=== PATIENT | male | born 2000 | race Hispanic/Latino ===

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

== ENCOUNTER 2021-01-18 22:15 | Emergency (ER) | payer OTHER, MEDICAID, SELFPAY ==
[2021-01-18 22:19] VITALS: BP 135/80; PULSE 76; RESP 16; TEMP 36.4; O2SAT 97
[2021-01-18 22:49] LABS: COVID19 -Nasal RAPID Negative (Negative)
--- NOTE | 2021-01-19 06:51 | ED.RECABL ---
HPI - Recheck/Abnormal Lab/Rx General Chief Complaint: Recheck/Abnormal Lab/Rx Stated Complaint: states needs covid test for flight Time Seen by Provider: 01/18/21 22:15 Source: patient Mode of arrival: Ambulatory Limitations: no limitations History of Present Illness HPI narrative: 20-year-old male nonsmoker with no medical history presents with request to obtain a COVID test that is required prior to the flight he has in the next few days. He denies any symptoms whatsoever such as runny nose, sore throat or cough. He denies any change in his ability to taste or smell. He has no fever or chills. He denies chest pain, shortness of breath or cough. He has had no nausea, vomiting or diarrhea Related Data Home Medications Medication Instructions Recorded Confirmed No Known Home Medications 12/18/20 12/18/20 Allergies Allergy/AdvReac Type Severity Reaction Status Date / Time No Known Drug Allergies Allergy Verified 12/18/20 20:29 Review of Systems Constitutional Constitutional: Denies chills, Denies fatigue, Denies fever(s), Denies frequent falls, Denies lethargy and Denies weakness Eyes Eyes: Denies change in vision, Denies eye discharge, Denies irritation and Denies loss of vision ENT Ears, Nose, Mouth, and Throat: Denies change in voice, Denies dizziness, Denies neck pain, Denies sore throat and Denies throat swelling Cardiovascular Cardiovascular: Denies chest pain, Denies irregular heart rhythm, Denies lightheadedness, Denies palpitations, Denies dyspnea, Denies dyspnea on exertion and Denies orthopnea Respiratory Respiratory: Denies cough, Denies dyspnea, Denies dyspnea on exertion and Denies wheezing Gastrointestinal Gastrointestinal: Denies abdominal pain, Denies change in bowel habits, Denies diarrhea, Denies nausea and Denies vomiting Musculoskeletal Musculoskeletal: Denies neck pain and Denies numbness Integumentary/Breasts Skin/Breast: Denies pruritus, Denies erythema, Denies rash and Denies wounds Neurologic Neurologic: Denies behavioral changes, Denies confusion, Denies dizziness, Denies frequent falls, Denies loss of vision, Denies numbness and Denies weakness Psychiatric Psychiatric: Denies anxiety, Denies behavioral changes, Denies confusion, Denies depression, Denies homicidal ideation and Denies suicidal ideation Endocrine Endocrine: Denies fatigue, Denies flushing and Denies palpitations Hematologic/Lymphatic Hematologic/Lymphatic: Denies easy bruising Allergic/Immunologic Allergic/Immunologic: Denies urticaria, Denies throat swelling and Denies wheezing Patient History Medical History Healthy adult Social History Smoking Status: Never smoker Smoking Status: Never smoker alcohol intake frequency: 0-2 drinks per day Substance Use Type: does not use Exam Narrative Exam Narrative: GEN: AOx3 and in mild distress EYES: Pupils are equal, round, and reactive to light and accommodation. Extraoccular muscles are intact bilaterally. There is no subconjunctival hemorrhage or exudate. CHEST: Lungs are clear to auscultation bilaterally and free of wheezes, rales, or rhonchi. Heart rate is regular rhythm, there are no murmurs, clicks, rubs, or gallops. There is no chest wall tenderness. ABD: Abdomen is soft and nontender. There is no guarding or rebound. Bowel sounds are normal in all 4 quadrants. There is no mass or organomegaly. EXT: Full painless ROM of all extremities with no loss of sensation or strength. SKIN: Warm, pink, and dry. No erythema or rash Initial Vital Signs Initial Vital Signs: Vital Signs Temperature 97.5 F L 01/18/21 22:19 Pulse Rate 76 01/18/21 22:19 Respiratory Rate 16 01/18/21 22:19 Blood Pressure 135/80 01/18/21 22:19 Pulse Oximetry 97 01/18/21 22:19 Course Orders Ordered: ED Orders 01/18/21 22:25 COVID19 -Nasal swab/Pre-Proc Stat MDM - Recheck/Abnormal Lab/Rx Lab Data Labs: Lab Results 01/18/21 Range/Units 22:25 SARS-CoV-2 (PCR) Negative (Negative) Discharge Plan Departure Patient Disposition: Home Clinical Impression: Feared complaint without diagnosis Instructions: COVID-19 Viral Test Activity Restrictions/Additional Instructions: *You have been diagnosed with [ encounter for COVID test ] *What to do: *Follow up with your primary care provider in 2-3 days, call for an appointment. Let them know you were seen in the Emergency Department and that we ask that you be seen in follow up *Return to ER if you should have any new, worsening or concerning symptoms Prescriptions: No Action No Known Home Medications RF: 0
== END 2021-01-18 22:26 | disposition home or self-care (01) ==
PROVIDERS: Emergency Provider Emergency Medicine
DX: Z00.00 Encounter for general adult medical examination without abnormal findings (principal); Z20.822 Contact with and (suspected) exposure to COVID-19
CPT/HCPCS: 87635; 99281; C9803

== ENCOUNTER 2021-04-26 22:42 | Emergency (ER) | payer OTHER, MEDICAID, SELFPAY ==
[2021-04-26 22:45] VITALS: BP 164/108; PULSE 93; RESP 24; TEMP 36.6; O2SAT 97
--- NOTE | 2021-04-26 22:55 | DI.CT.S_ITS ---
PROCEDURE: CT ABDOMEN PELVIS W CON INDICATIONS: Right lower quadrant abdominal pain TECHNIQUE: After the administration of oral and intravenous contrast, axial sections were acquired from the lung bases to the pubic symphysis. Coronal and sagittal reformats were performed. For radiation dose reduction, the following was used: automated exposure control, adjustment of mA and/or kV according to patient size. COMPARISON:[facility], CT, CT ABDOMEN PELVIS W CON, 09/30/2019, 3:28. FINDINGS: ABDOMEN: Lung bases: Normal. Heart: No significant findings. Liver: Normal. Gallbladder: Normal. Bile ducts: Normal. Pancreas: Normal. Spleen: Normal. Adrenals: Normal. Kidneys and Ureters: Normal. Stomach and duodenum: Normal. Bowel: Fluid-filled small bowel loops present in the left upper quadrant. There is borderline dilatation. Long segment wall thickening involving the transverse and right colon with mild adjacent inflammatory fat stranding. The appendix appears normal. Other: No free fluid or air. Abdominal nodes: Subcentimeter shotty scattered mesenteric lymph nodes without pathologic enlargement by size criteria. Aorta and IVC: Normal in size. Ventral wall: Normal. PELVIS: Bladder: Normal. Inguinal region: No hernia. Pelvic nodes: No Bones: No suspicious bony lesions. No vertebral body compression fractures. IMPRESSION: Right and transverse nonspecific colitis, statistically infectious or inflammatory in etiology. Please correlate clinically and with laboratory data. Borderline dilatation of small bowel loops in the left upper quadrant raising the possibility of reactive ileus. Normal appendix. Findings concordant with preliminary study interpretation. Dictated by: Tanvir Pollard M.D. on 04/27/2021 at 8:17 Approved by: Tanvir Pollard M.D. on 04/27/2021 at 8:23
[2021-04-26 23:03] LABS: Add Manual Diff / Slide Review NO; Basophils Absolute Auto 0 /uL (0-100); Basophils Percent Auto 0.2 % (0-2); Eosinophils Absolute Auto 200 /uL (0-450); Eosinophils Percent Auto 1.4 % (2-4); Hematocrit 48.5 % (41-53); Hemoglobin 16.3 g/dL (13.5-17.5); Lymphocytes Absolute Auto 1600 /uL (1100-4500); Mean Corpuscular HGB Conc 33.7 % (30-36); Mean Corpuscular Hemoglobin 28.4 PG (26-34); Mean Corpuscular Volume 84.3 fL (80-100); Monocytes Absolute Auto 700 /uL (0-900); Monocytes Percent Auto 4.5 % (3-14); Neutrophils Absolute Auto 12300 /uL (1500-7000); Neutrophils Percent Auto 82.9 % (50-75); Platelet Count 246 X10^3/uL (150-400); Red Blood Cell Count 5.75 X10^6/uL (4.5-5.9); White Blood Cell Count 14.9 X10^3/uL (4.5-11.0)
--- NOTE | 2021-04-26 23:07 | ED_ITS ---
HPI - General Adult General Chief complaint: Abdominal Pain Stated complaint: severe abdominal pain Time Seen by Provider: 04/26/21 22:54 Source: patient Mode of arrival: Ambulatory History of Present Illness HPI narrative: Patient is an otherwise healthy 21-year-old male here for evaluation of right-sided abdominal discomfort. He states he has had discomfort for the past couple days and has been worsening. He also has had diarrhea. S ome nausea but no vomiting. No fevers. He has had his gallbladder removed. No recent travel. No recent camping. No blood in his stool. Related Data Home Medications Medication Instructions Recorded Confirmed No Known Home Medications 12/18/20 12/18/20 Allergies Allergy/AdvReac Type Severity Reaction Status Date / Time No Known Drug Allergies Allergy Verified 12/18/20 20:29 Review of Systems Constitutional Constitutional: Denies fever(s) ENT Ears, Nose, Mouth, and Throat: Reports system reviewed and no additional complaints, except as documented Cardiovascular Cardiovascular: Reports system reviewed and no additional complaints, except as documented Respiratory Respiratory: Reports system reviewed and no additional complaints, except as documented Gastrointestinal Gastrointestinal: Reports abdominal pain, Denies melena, Denies hematochezia, Reports diarrhea and Reports nausea Genitourinary Genitourinary: Denies dysuria and Denies testicular pain Musculoskeletal Musculoskeletal: Denies back pain Integumentary/Breasts Skin/Breast: Reports system reviewed and no additional complaints, except as documented Neurologic Neurologic: Reports system reviewed and no additional complaints, except as documented Psychiatric Psychiatric: Reports system reviewed and no additional complaints, except as documented Endocrine Endocrine: Reports system reviewed and no additional complaints, except as documented Hematologic/Lymphatic On Anticoagulants: No Allergic/Immunologic Allergic/Immunologic: Reports system reviewed and no additional complaints, except as documented Patient History Medical History Healthy adult Social History Smoking Status: Never smoker Smoking Status: Never smoker alcohol intake frequency: 0-2 drinks per day Substance Use Type: does not use Exam Initial Vital Signs Initial Vital Signs: Vital Signs Temperature 97.9 F 04/26/21 22:45 Pulse Rate 93 H 04/26/21 22:45 Respiratory Rate 24 04/26/21 22:45 Blood Pressure 164/108 H 04/26/21 22:45 Pulse Oximetry 97 04/26/21 22:45 Const General: cooperative and healthy appearing [facility] Head: normal to inspection and normocephalic Resp Effort & Inspection: normal respiratory effort Cardio Rate: regular rate GI Palpation: soft and tender (Right lower quadrant) Back/Spine/Pelvis Back: No CVA tenderness Skin General: no rashes or lesions noted Neuro General: patient alert, patient awake and patient oriented x3 Extrem General: normal to inspection and capillary refill normal Psych Appearance: grossly normal and well kempt Course Orders Ordered: ED Orders 04/26/21 22:55 CT abdomen pelvis w con Stat Complete Blood Count AUTO DIFF Stat Comprehensive Metabolic Panel Stat Lactate (Lactic Acid) Stat Lipase Stat Discontinued Medications Sodium Chloride (Normal Saline 0.9%) 1,000 mls @ 1,000 mls/hr IV BOLUS ONE Stop: 04/26/21 23:53 Last Admin: 04/26/21 23:20 Dose: 1,000 mls/hr Documented by: ADRIANA Morphine Sulfate (Morphine 4 Mg/Ml Inj) 4 mg IV NOW ONE Stop: 04/26/21 23:08 Last Admin: 04/26/21 23:18 Dose: 4 mg Documented by: ADRIANA Ondansetron HCl (Ondansetron 4 Mg Odt Prepack) 1 bottle MISC SEEINSTR ONE Stop: 04/27/21 00:46 Vital Signs Vital signs: Vital Signs - 8 hr 04/26/21 22:45 Temperature 97.9 F Pulse Rate 93 H Respiratory Rate 24 Blood Pressure 164/108 H Pulse Oximetry 97 Medical Decision Making Lab Data Lab results reviewed: Yes I reviewed the patient's lab results. Result diagrams: 04/26/21 22:55 04/26/21 22:55 Labs: Lab Results 04/26/21 04/26/21 04/26/21 Range/Units 22:55 22:55 22:55 WBC 14.9 H (4.5-11.0) X10^3/uL RBC 5.75 (4.5-5.9) X10^6/uL Hgb 16.3 (13.5-17.5) g/dL Hct 48.5 (41-53) % MCV 84.3 (80-100) fL MCH 28.4 (26-34) PG MCHC 33.7 (30-36) % RDW 13.0 (11.6-14.8) % Plt Count 246 (150-400) X10^3/uL Neut % (Auto) 82.9 H (50-75) % Lymph % (Auto) 11.0 L (25-40) % Murray % (Auto) 4.5 (3-14) % Eos % (Auto) 1.4 L (2-4) % Baso % (Auto) 0.2 (0-2) % Neut # (Auto) 70939 H (5226-7969) /uL Lymph # (Auto) 1600 (1054-2154) /uL Murray # (Auto) 700 (0-900) /uL Eos # (Auto) 200 (0-450) /uL Baso # (Auto) 0 (0-100) /uL Sodium 141 (137-145) mmol/L Potassium 4.1 (3.4-5.1) mmol/L Chloride 106 (98-107) mmol/L Carbon Dioxide 25 (22-32) mmol/L BUN 19 (9-20) mg/dL Creatinine 0.67 (0.66-1.25) mg/dL Estimated GFR > 60.0 (>60) mL/min BUN/Creatinine Ratio 28.4 H (6-22) Glucose 112 H (70-100) mg/dL Lactate 1.0 (0.7-2.1) mmol/L Calcium 8.9 (8.4-10.2) mg/dL Total Bilirubin 0.4 (0.2-1.3) mg/dL AST 29 (17-59) IU/L ALT 21 (<50) IU/L Alkaline Phosphatase 144 H (38-126) U/L Total Protein 7.7 (6.3-8.2) g/dL Albumin 4.7 (3.5-5.0) g/dL Globulin 3.0 (1.7-4.1) g/dL Albumin/Globulin Ratio 1.6 (1.0-2.8) Lipase 56 (23-300) U/L Imaging Data CT scan - abdomen/pelvis: Radiologist's Impression: Nonspecific acute right and transverse colitis. Borderline dilated left upper quadrant small bowel possible ileus MDM Narrative Medical decision making narrative: Patient does have right lower quadrant abdominal discomfort and also leukocytosis however his CT scan shows a normal appendix. Does have a nonspecific transverse and ascending colitis which very well could explain his symptoms. He has had some diarrhea but no blood. No fevers. No recent travel. I feel given his presentation that we should treat him supportively with anti nausea medication. We did discuss avoiding the use of anti diarrheal medicines and increases fluid intake. We will hold on any antibiotics for now given his presentation and his history. He was given strict return precautions. He expressed understanding and agreement. Discharge Plan Departure Patient Disposition: Home Clinical Impression: Colitis, Abdominal pain Instructions: DI for Abdominal Pain-Adult, DI for Colitis Activity Restrictions/Additional Instructions: Use the nausea medicine as needed. Be sure to increase your fluid intake. I also recommend that you eat a bland diet until your symptoms have resolved. You can take Tylenol for any discomfort. I would not be surprised if you continue to have diarrhea over the next couple days. If your symptoms worsen or your unable to tolerate any fluids by mouth you do need to return to the emergency department for further evaluation. Prescriptions: No Action No Known Home Medications RF: 0
[2021-04-26 23:13] LABS: Alanine Aminotransferase 21 IU/L (<50); Albumin 4.7 g/dL (3.5-5.0); Albumin Globulin Ratio 1.6 (1.0-2.8); Alkaline Phosphatase 144 U/L (38-126); Aspartate Aminotransferase 29 IU/L (17-59); BUN Creatinine Ratio 28.4 (6-22); Bilirubin Total 0.4 mg/dL (0.2-1.3); Blood Urea Nitrogen 19 mg/dL (9-20); Calcium 8.9 mg/dL (8.4-10.2); Carbon Dioxide 25 mmol/L (22-32); Chloride 106 mmol/L (98-107); Estimated Glomerular Filt Rate > 60.0 mL/min (>60); Glucose 112 mg/dL (70-100); HEMOLYSIS 28 (0-50); Lipase 56 U/L (23-300); Potassium 4.1 mmol/L (3.4-5.1); Sodium 141 mmol/L (137-145); Total Protein 7.7 g/dL (6.3-8.2)
[2021-04-26] MEDS: MORPHINE 4 MG/ML INJ IV (23:18)
[2021-04-26] MEDS: SODIUM CHLORIDE 0.9% 1,000 ML 1000 ML IV (23:20)
[2021-04-27] MEDS: ONDANSETRON 4 MG/2 ML INJ
== END 2021-04-27 05:26 | disposition home or self-care (01) ==
PROVIDERS: Emergency Provider Emergency Medicine
DX: K52.9 Noninfective gastroenteritis and colitis, unspecified (principal); R10.9 Unspecified abdominal pain; R11.2 Nausea with vomiting, unspecified; D72.829 Elevated white blood cell count, unspecified
CPT/HCPCS: 74177; 80053; 83605; 83690; 85025; 96361; 96374; 96375; 99283; 99285; J2270; J2405; Q9967

== ENCOUNTER 2021-05-01 09:23 | Emergency (ER) | payer OTHER, MEDICAID, SELFPAY ==
[2021-05-01] VITALS (7 sets, daily range): BP systolic 115–163; BP diastolic 62–96; PULSE 78–95; RESP 18; TEMP 36.6; O2SAT 97–98; BMI 29.2
--- NOTE | 2021-05-01 09:42 | ED.ABDPAIN ---
HPI - Abdominal Pain General Chief Complaint: Abdominal Pain Stated Complaint: stomach pain Time Seen by Provider: 05/01/21 09:31 Source: patient Mode of arrival: Family Vehicle Limitations: no limitations History of Present Illness HPI narrative: Patient is a 21-year-old male who presents with abdominal pain ongoing for 1.5 week seen and evaluated here 5 days ago had blood work and abdominal CT which showed colitis. He has occasional diarrhea some nausea and increasing abdominal pain. He says it feels better when he holds pressure to his abdomen seems to be periumbilical where he has pain. He denies fever or chills. No dizziness or lightheadedness. Related Data Previous Rx's Medication Instructions Recorded ciprofloxacin HCl 500 mg tablet 500 mg PO BID #14 tab 05/01/21 (Cipro) metronidazole 500 mg tablet 500 mg PO Q8H #21 tab 05/01/21 (Flagyl) Allergies Allergy/AdvReac Type Severity Reaction Status Date / Time No Known Drug Allergies Allergy Verified 05/01/21 09:33 Review of Systems Review of Systems Narrative: GENERAL: Denies chills, fatigue, malaise, fever, sweats, travel HEENT: Denies sinus pain, ear pain, sore throat, difficulty swallowing, neck pain RESPIRATORY: Denies dyspnea, cough, wheezing, hemoptysis, sputum. CARDIOVASCULAR: Denies chest pain, palpitations, orthopnea, edema GASTROINTESTINAL: See HPI : Denies dysuria, frequency, incontinence, hematuria, urinary retention, flank pain. MUSCULOSKELETAL: Denies weakness, joint pain, or bony pain SKIN: No rash, no erythema, no pruritus NEUROLOGIC: Denies weakness, dizziness, headache, numbness, change in speech, confusion PSYCHIATRIC: No concerning psychosocial issues. 12 point review of systems is negative except for those stated above and HPI Patient History Medical History (Updated 05/01/21 @ 10:54 by Liseth Mckeon DO) Healthy adult Social History Smoking Status: Never smoker Smoking Status: Never smoker alcohol intake frequency: 0-2 drinks per day Substance Use Type: does not use Exam Initial Vital Signs Initial Vital Signs: Vital Signs Temperature 97.9 F 05/01/21 09:33 Pulse Rate 90 05/01/21 09:33 Respiratory Rate 18 05/01/21 09:33 Blood Pressure 163/88 H 05/01/21 09:33 Pulse Oximetry 98 05/01/21 09:33 GENERAL: 21-year-old male appears uncomfortable holding abdomen HEENT: Head atraumatic,EOMI, pupils reactive, face symmetric, moist mucous membranes CARDIOVASCULAR: Regular rate and rhythm without murmurs, rubs or gallops. RESPIRATORY: Breath sounds equal bilaterally, no wheezes rales or rhonchi. ABDOMEN: Soft, tender periumbilical region no guarding no rebound EXTREMITIES: Normal range of motion, no clubbing or edema. Neurovascularly intact NEUROLOGICAL: Alert and oriented x4.Normal gait and speech. SKIN: Warm, dry, no laceration, no petechiae, no rashes or lesions. Course Orders Ordered: ED Orders 05/01/21 09:50 Complete Blood Count AUTO DIFF Stat Comprehensive Metabolic Panel Stat Lactate (Lactic Acid) Stat Lipase Stat Procalcitonin Stat 05/01/21 09:54 XR acute abdomen series Stat Discontinued Medications Sodium Chloride (Normal Saline 0.9%) 1,000 mls @ 1,000 mls/hr IV CONT JUHI Last Infusion: 05/01/21 11:18 Dose: 0 mls/hr Documented by: Admin: 05/01/21 10:01 Dose: 1,000 mls/hr Documented by: INES Ketorolac Tromethamine (Ketorolac 30 Mg/Ml Vial) 30 mg IV NOW ONE Stop: 05/01/21 09:44 Last Admin: 05/01/21 10:01 Dose: 30 mg Documented by: INES Ondansetron HCl (Ondansetron 4 Mg/2 Ml Inj) 4 mg IV NOW ONE Stop: 05/01/21 09:44 Last Admin: 05/01/21 10:01 Dose: 4 mg Documented by: INES Vital Signs Vital signs: Vital Signs - 8 hr 05/01/21 11:00 Pulse Rate 78 Blood Pressure 115/71 Pulse Oximetry 98 MDM - Abdominal Pain Lab Data Result diagrams: 05/01/21 09:50 05/01/21 09:50 Labs: Lab Results 05/01/21 05/01/21 05/01/21 Range/Units 09:50 09:50 09:50 WBC 17.0 H (4.5-11.0) X10^3/uL RBC 5.68 (4.5-5.9) X10^6/uL Hgb 16.1 (13.5-17.5) g/dL Hct 47.6 (41-53) % MCV 83.8 (80-100) fL MCH 28.3 (26-34) PG MCHC 33.8 (30-36) % RDW 13.4 (11.6-14.8) % Plt Count 258 (150-400) X10^3/uL Neut % (Auto) 83.6 H (50-75) % Lymph % (Auto) 8.3 L (25-40) % Island % (Auto) 5.5 (3-14) % Eos % (Auto) 1.6 L (2-4) % Baso % (Auto) 1.0 (0-2) % Neut # (Auto) 11778 H (0492-8662) /uL Lymph # (Auto) 1400 (7625-4751) /uL Island # (Auto) 900 (0-900) /uL Eos # (Auto) 300 (0-450) /uL Baso # (Auto) 200 H (0-100) /uL Sodium 138 (137-145) mmol/L Potassium 3.7 (3.4-5.1) mmol/L Chloride 106 (98-107) mmol/L Carbon Dioxide 22 (22-32) mmol/L BUN 11 (9-20) mg/dL Creatinine 0.62 L (0.66-1.25) mg/dL Estimated GFR > 60.0 (>60) mL/min BUN/Creatinine Ratio 17.7 (6-22) Glucose 111 H (70-100) mg/dL Lactate 0.7 (0.7-2.1) mmol/L Calcium 9.1 (8.4-10.2) mg/dL Total Bilirubin 0.4 (0.2-1.3) mg/dL AST 26 (17-59) IU/L ALT 22 (<50) IU/L Alkaline Phosphatase 139 H (38-126) U/L Total Protein 7.6 (6.3-8.2) g/dL Albumin 4.5 (3.5-5.0) g/dL Globulin 3.1 (1.7-4.1) g/dL Albumin/Globulin Ratio 1.5 (1.0-2.8) Lipase 82 (23-300) U/L Procalcitonin (<0.5) ng/mL 05/01/21 Range/Units 09:50 WBC (4.5-11.0) X10^3/uL RBC (4.5-5.9) X10^6/uL Hgb (13.5-17.5) g/dL Hct (41-53) % MCV (80-100) fL MCH (26-34) PG MCHC (30-36) % RDW (11.6-14.8) % Plt Count (150-400) X10^3/uL Neut % (Auto) (50-75) % Lymph % (Auto) (25-40) % Island % (Auto) (3-14) % Eos % (Auto) (2-4) % Baso % (Auto) (0-2) % Neut # (Auto) (6451-0575) /uL Lymph # (Auto) (9098-0562) /uL Island # (Auto) (0-900) /uL Eos # (Auto) (0-450) /uL Baso # (Auto) (0-100) /uL Sodium (137-145) mmol/L Potassium (3.4-5.1) mmol/L Chloride (98-107) mmol/L Carbon Dioxide (22-32) mmol/L BUN (9-20) mg/dL Creatinine (0.66-1.25) mg/dL Estimated GFR (>60) mL/min BUN/Creatinine Ratio (6-22) Glucose (70-100) mg/dL Lactate (0.7-2.1) mmol/L Calcium (8.4-10.2) mg/dL Total Bilirubin (0.2-1.3) mg/dL AST (17-59) IU/L ALT (<50) IU/L Alkaline Phosphatase (38-126) U/L Total Protein (6.3-8.2) g/dL Albumin (3.5-5.0) g/dL Globulin (1.7-4.1) g/dL Albumin/Globulin Ratio (1.0-2.8) Lipase (23-300) U/L Procalcitonin 0.04 (<0.5) ng/mL Point of care testing: Urine Dip Bedside Urine Glucose Negative Bedside Urine Bilirubin - Negative Bedside Urine Ketone - Negative Urine Specific Wise 1.010 Bedside Urine Occult Blood - Negative Bedside Urine pH 6.0 Bedside Urine Protein - Negative Bedside Urine Urobilinogen - Negative Bedside Urine Nitrite - Negative Bedside Urine Leukocytes - Negative Esterase MDM Narrative Medical decision making narrative: Patient is having increasing leukocytosis. X-ray is negative I do not think he needs any repeat CT. Will start him on antibiotics cipro and flagyl. He is tolerating oral fluids. Discharge Plan Departure Patient Disposition: Home Clinical Impression: Colitis Instructions: DI for Colitis Activity Restrictions/Additional Instructions: *You have been diagnosed with colitis *What to do: Infection in your intestine causing inflammation. Recommend clear liquid diet which includes broth, Jell-O, Gatorade, applesauce, for 1-3 days. If you are feeling better may increase diet *Continue to take medications as directed Cipro 500 mg twice a day for 7 days Flagyl 500 mg 3 times a day for 7 days *Follow up with your primary care provider in 2-3 days *Return to ER if you should have increasing pain, vomiting, fever or any new, worsening or concerning symptoms Prescriptions: New ciprofloxacin HCl [Cipro] 500 mg tablet 500 mg PO BID Qty: 14 RF: 0 metronidazole [Flagyl] 500 mg tablet 500 mg PO Q8H Qty: 21 RF: 0 Referrals: [facility] [Outside]
--- NOTE | 2021-05-01 09:54 | DI.RAD.S_ITS ---
PROCEDURE: XR ACUTE ABDOMEN SERIES INDICATIONS: pain TECHNIQUE: One view chest and two views of the abdomen were acquired. COMPARISON: [facility], CT, CT ABDOMEN PELVIS W CON, 09/30/2019, 3:28. [facility], CT, CT ABDOMEN PELVIS W CON, 04/26/2021, 23:05. FINDINGS: Surgical changes and devices: None. Chest: Lungs are clear. Heart size is normal. No pleural effusions. No pneumoperitoneum. Abdomen: Bowel gas pattern is normal. No suspicious calcifications. Visualized solid organ contours appear normal. Bones: No suspicious bony lesions. IMPRESSION: Normal plain films, with a nonobstructive bowel gas pattern. Clear lungs. Dictated by: Homer Charles M.D. on 05/01/2021 at 9:11 Approved by: Homer Charles M.D. on 05/01/2021 at 9:12
[2021-05-01 10:00] LABS: Add Manual Diff / Slide Review NO; Basophils Absolute Auto 200 /uL (0-100); Eosinophils Absolute Auto 300 /uL (0-450); Eosinophils Percent Auto 1.6 % (2-4); Hematocrit 47.6 % (41-53); Hemoglobin 16.1 g/dL (13.5-17.5); Lymphocytes Absolute Auto 1400 /uL (1100-4500); Lymphocytes Percent Auto 8.3 % (25-40); Mean Corpuscular HGB Conc 33.8 % (30-36); Mean Corpuscular Hemoglobin 28.3 PG (26-34); Mean Corpuscular Volume 83.8 fL (80-100); Monocytes Absolute Auto 900 /uL (0-900); Monocytes Percent Auto 5.5 % (3-14); Neutrophils Absolute Auto 14200 /uL (1500-7000); Neutrophils Percent Auto 83.6 % (50-75); Platelet Count 258 X10^3/uL (150-400); Red Blood Cell Count 5.68 X10^6/uL (4.5-5.9); Red Cell Distribution Width 13.4 % (11.6-14.8)
[2021-05-01] MEDS: ONDANSETRON 4 MG/2 ML INJ IV (10:01)
[2021-05-01] MEDS: SODIUM CHLORIDE 0.9% 1,000 ML 1000 ML IV (10:01)
[2021-05-01] MEDS: KETOROLAC 30 MG/ML VIAL IV (10:01)
[2021-05-01 10:10] LABS: Alanine Aminotransferase 22 IU/L (<50); Albumin 4.5 g/dL (3.5-5.0); Albumin Globulin Ratio 1.5 (1.0-2.8); Alkaline Phosphatase 139 U/L (38-126); Aspartate Aminotransferase 26 IU/L (17-59); BUN Creatinine Ratio 17.7 (6-22); Bilirubin Total 0.4 mg/dL (0.2-1.3); Blood Urea Nitrogen 11 mg/dL (9-20); Calcium 9.1 mg/dL (8.4-10.2); Carbon Dioxide 22 mmol/L (22-32); Chloride 106 mmol/L (98-107); Estimated Glomerular Filt Rate > 60.0 mL/min (>60); Globulin 3.1 g/dL (1.7-4.1); Glucose 111 mg/dL (70-100); HEMOLYSIS 18 (0-50); Lipase 82 U/L (23-300); Potassium 3.7 mmol/L (3.4-5.1); Sodium 138 mmol/L (137-145); Total Protein 7.6 g/dL (6.3-8.2)
[2021-05-01 10:27] LABS: Lactate (Lactic Acid) 0.7 mmol/L (0.7-2.1)
[2021-05-01 10:44] LABS: Procalcitonin 0.04 ng/mL (<0.5)
== END 2021-05-01 11:19 | disposition home or self-care (01) ==
PROVIDERS: Emergency Provider Emergency Medicine
DX: K52.9 Noninfective gastroenteritis and colitis, unspecified (principal); R11.0 Nausea
CPT/HCPCS: 36415; 74022; 80053; 81003; 83605; 83690; 84145; 85025; 96361; 96374; 96375; 99284; J1885; J2405

== ENCOUNTER 2022-02-07 14:31 | Emergency (ER) | payer OTHER, MEDICAID, SELFPAY ==
[2022-02-07] VITALS (7 sets, daily range): BP systolic 121–160; BP diastolic 57–74; PULSE 59–83; RESP 15–18; TEMP 36.6; O2SAT 97–100; BMI 23.9
[2022-02-07 14:57] LABS: Add Manual Diff / Slide Review NO; Basophils Absolute Auto 0 /uL (0-100); Basophils Percent Auto 0.5 % (0-2); Eosinophils Absolute Auto 0 /uL (0-450); Eosinophils Percent Auto 0.6 % (2-4); Hematocrit 45.3 % (41-53); Hemoglobin 15.4 g/dL (13.5-17.5); Lymphocytes Absolute Auto 1600 /uL (1100-4500); Lymphocytes Percent Auto 21.5 % (25-40); Mean Corpuscular HGB Conc 33.9 % (30-36); Mean Corpuscular Hemoglobin 28.5 PG (26-34); Mean Corpuscular Volume 83.9 fL (80-100); Monocytes Absolute Auto 400 /uL (0-900); Monocytes Percent Auto 5.5 % (3-14); Neutrophils Absolute Auto 5500 /uL (1500-7000); Neutrophils Percent Auto 71.9 % (50-75); Platelet Count 252 X10^3/uL (150-400); Red Blood Cell Count 5.39 X10^6/uL (4.5-5.9); Red Cell Distribution Width 13.5 % (11.6-14.8); White Blood Cell Count 7.6 X10^3/uL (4.5-11.0)
[2022-02-07 15:07] LABS: Alanine Aminotransferase 36 IU/L (<50); Albumin 4.9 g/dL (3.5-5.0); Albumin Globulin Ratio 1.5 (1.0-2.8); Alkaline Phosphatase 102 U/L (38-126); Aspartate Aminotransferase 39 IU/L (17-59); BUN Creatinine Ratio 15.9 (6-22); Blood Urea Nitrogen 14 mg/dL (9-20); Carbon Dioxide 24 mmol/L (22-32); Chloride 105 mmol/L (98-107); Estimated Glomerular Filt Rate > 60 mL/min (>60); Globulin 3.2 g/dL (1.7-4.1); Glucose 85 mg/dL (70-100); HEMOLYSIS < 15 (0-50); Lipase 48 U/L (23-300); Potassium 4.1 mmol/L (3.4-5.1); Sodium 141 mmol/L (137-145); Total Protein 8.1 g/dL (6.3-8.2)
--- NOTE | 2022-02-07 16:27 | ED.ABDPAIN ---
HPI - Abdominal Pain General Chief Complaint: Abdominal Pain Stated Complaint: ABD pain post Gall bladder surgery Time Seen by Provider: 02/07/22 16:27 Source: patient Mode of arrival: Ambulatory Limitations: no limitations History of Present Illness HPI narrative: This is a 21-year-old male who presents with right upper quadrant pain which he states started in the last 2-3 days. Patient states he had a cholecystectomy about 2 years ago he states this feels very similar to that pain. He has been afebrile. He denies any nausea or vomiting. He states pain is localized to the right upper quadrant no back or flank pain. Pain has not changed location. He has had some loose stools that have been diarrhea like but no black or bloody stools. No dark frequency or urgency but has had some mild dysuria. No penile discharge. No testicular pain. Patient denies other medical issues. No other surgeries. No allergies to medications otherwise. No tobacco, occasional alcohol, no illicit. Related Data Previous Rx's Medication Instructions Recorded ciprofloxacin HCl 500 mg tablet 500 mg PO BID #14 tab 05/01/21 (Cipro) metronidazole 500 mg tablet 500 mg PO Q8H #21 tab 05/01/21 (Flagyl) hydrocodone 5 mg-acetaminophen 325 1 tab PO Q6H PRN #10 tab 02/07/22 mg tablet Allergies Allergy/AdvReac Type Severity Reaction Status Date / Time No Known Drug Allergies Allergy Verified 02/07/22 14:40 Review of Systems Review of Systems ROS Unobtainable: All systems reviewed & are unremarkable except as noted in HPI and below Patient History Medical History (Updated 02/07/22 @ 18:17 by Ingrid Sandra DO) Healthy adult Social History Smoking Status: Never smoker Smoking Status: Never smoker alcohol intake frequency: holidays/special occasions only Substance Use Type: does not use Exam Narrative Exam Narrative: GENERAL: Alert and oriented x three, male in [id number] distress. HEENT: Head normocephalic, atraumatic, EOMI, pupils reactive, face symmetric, moist mucous membranes NECK: Supple, full range of motion CARDIOVASCULAR: Regular rate and rhythm without murmurs, rubs or gallops. RESPIRATORY: Breath sounds equal bilaterally, no wheezes rales or rhonchi. ABDOMEN: Soft, positive for right upper quadrant tenderness. Nondistended. Normoactive bowel sounds all 4 quadrants. No guarding or rebound, rigidity, no mass : No CVA tenderness EXTREMITIES: Normal range of motion, no clubbing or edema. Neurovascularly intact NEUROLOGICAL: Cranial nerves II through XII grossly intact. Moving all extremities. Normal gait. SKIN: Warm, dry, no petechiae, no rashes or lesions. Initial Vital Signs Initial Vital Signs: Vital Signs Temperature 97.9 F 02/07/22 14:40 Pulse Rate 66 02/07/22 14:40 Respiratory Rate 15 02/07/22 14:40 Blood Pressure 160/74 H 02/07/22 14:40 Pulse Oximetry 100 02/07/22 14:40 Course Orders Ordered: ED Orders 02/07/22 14:42 EKG-12 Lead Stat 02/07/22 14:45 Complete Blood Count AUTO DIFF Stat Comprehensive Metabolic Panel Stat Lipase Stat 02/07/22 16:55 CT abdomen pelvis w con Stat Discontinued Medications Ketorolac Tromethamine (Ketorolac 30 Mg/Ml Vial) 30 mg IV NOW ONE Stop: 02/07/22 16:56 Last Admin: 02/07/22 17:21 Dose: 30 mg Documented by: Morphine Sulfate (Morphine 4 Mg/Ml Inj) 4 mg IV NOW ONE Stop: 02/07/22 18:18 Last Admin: 02/07/22 18:29 Dose: 4 mg Documented by: Vital Signs Vital signs: Vital Signs - 8 hr 02/07/22 14:40 Temperature 97.9 F Pulse Rate 66 Respiratory Rate 15 Blood Pressure 160/74 H Pulse Oximetry 100 MDM - Abdominal Pain Lab Data Result diagrams: 02/07/22 14:45 02/07/22 14:45 Labs: Lab Results 02/07/22 02/07/22 Range/Units 14:45 14:45 WBC 7.6 (4.5-11.0) X10^3/uL RBC 5.39 (4.5-5.9) X10^6/uL Hgb 15.4 (13.5-17.5) g/dL Hct 45.3 (41-53) % MCV 83.9 (80-100) fL MCH 28.5 (26-34) PG MCHC 33.9 (30-36) % RDW 13.5 (11.6-14.8) % Plt Count 252 (150-400) X10^3/uL Neut % (Auto) 71.9 (50-75) % Lymph % (Auto) 21.5 L (25-40) % [place] % (Auto) 5.5 (3-14) % Eos % (Auto) 0.6 L (2-4) % Baso % (Auto) 0.5 (0-2) % Neut # (Auto) 5500 (0368-0149) /uL Lymph # (Auto) 1600 (5702-2296) /uL [place] # (Auto) 400 (0-900) /uL Eos # (Auto) 0 (0-450) /uL Baso # (Auto) 0 (0-100) /uL Sodium 141 (137-145) mmol/L Potassium 4.1 (3.4-5.1) mmol/L Chloride 105 (98-107) mmol/L Carbon Dioxide 24 (22-32) mmol/L BUN 14 (9-20) mg/dL Creatinine 0.88 (0.66-1.25) mg/dL Estimated GFR > 60 (>60) mL/min BUN/Creatinine Ratio 15.9 (6-22) Glucose 85 (70-100) mg/dL Calcium 9.0 (8.4-10.2) mg/dL Total Bilirubin 1.0 (0.2-1.3) mg/dL AST 39 (17-59) IU/L ALT 36 (<50) IU/L Alkaline Phosphatase 102 (38-126) U/L Total Protein 8.1 (6.3-8.2) g/dL Albumin 4.9 (3.5-5.0) g/dL Globulin 3.2 (1.7-4.1) g/dL Albumin/Globulin Ratio 1.5 (1.0-2.8) Lipase 48 (23-300) U/L Point of care testing: Urine Dip Bedside Urine Glucose Negative Bedside Urine Bilirubin - Negative Bedside Urine Ketone +/- 5 Urine Specific [place] 1.020 Bedside Urine Occult Blood - Negative Bedside Urine pH 6.0 Bedside Urine Protein - Negative Bedside Urine Urobilinogen - Negative Bedside Urine Nitrite - Negative Bedside Urine Leukocytes - Negative Esterase Imaging Data CT scan - abdomen/pelvis: Radiologist's Impression: [id number] [id number] [address] Scan Report Signed Patient: Rahul Stack MR#: [id number] : 2000 Acct:[id number] Age/Sex: 21 / M Date of Service: 02/07/22 Loc: ED Accession Number: [id number] ?? Procedure: CT abdomen pelvis w con Ordering Provider: Ingrid Sandra D.O. PROCEDURE:? CT ABDOMEN PELVIS W CON ? INDICATIONS:? RUQ pain, hx cholecystectomy 2 years ago. ? TECHNIQUE:? After the administration of oral and IV contrast, axial sections were acquired from the lung bases to the pubic symphysis.? Coronal and sagittal reformats were performed.? For radiation dose reduction, the following was used:? automated exposure control, adjustment of mA and/or kV according to patient size. ? COMPARISON:? [facility], CT, CT ABDOMEN PELVIS W CON, 04/26/2021, 23:05.? [facility], CR, XR ACUTE ABDOMEN SERIES, 05/01/2021, 9:54.? [facility], CT, CT ABDOMEN PELVIS W CON, 09/30/2019, 3:28. ? FINDINGS:? Image quality:? Excellent.? ? Lung bases:? Unremarkable.? ? Heart:? No significant findings. ? ? ABDOMEN: Liver: Incidental note is made of focal fatty infiltration adjacent to the falciform ligament, which is not regarded to be pathologic.? The liver is normal in size and demonstrates no suspicious lesions. Gallbladder:? Removed.? The cholecystectomy bed is unremarkable.? ? Biliary ducts:? Unremarkable.? ? Pancreas:? Unremarkable.? ? Spleen:? Unremarkable.? ? Adrenal Glands:? Unremarkable.? ? Kidneys and Ureters:? Unremarkable.? ? ? Stomach and Bowel:? Stomach, small bowel loops, and colon are unremarkable.? The previously seen colonic wall thickening is no longer seen.? A normal appendix is seen.? Peritoneum:? No abnormal intraperitoneal fluid.? No free air.? ? Ventral Wall: ? No hernia.? Abdominal Nodes:? No retroperitoneal or mesenteric adenopathy by size criteria.? Vessels:? Aorta and inferior vena cava are normal in size.? ? PELVIS: Pelvic Organs:? Unremarkable.? ? Bladder:? Unremarkable.? ? Pelvic Nodes: No enlarged lymph nodes.? Miscellaneous: No inguinal hernias are seen. ? ? ? Bones:? Mild dextroconvex scoliotic curvature is seen.? ? ? IMPRESSION:? ? Status post cholecystectomy, without abnormalities of the cholecystectomy bed.? There is no biliary dilatation. ? Normal appendix.? Incidental note is made of: Mild dextroconvex scoliotic curvature ? Dictated by: Homer Charles M.D. on 02/07/2022 at 16:44 ? ? Approved by: Homer Charles M.D. on 02/07/2022 at 16:46 MDM Narrative Medical decision making narrative: This is a 21-year-old male with complaint of abdominal pain for the last several days which has been persistent waxing and waning in intensity. Feels very similar to his prior gallbladder pain when he had his cholecystectomy. He does not have any other medical issues. No fevers but has had some diarrhea, no vomiting or nausea. Labs reassuring urine is negative he did mention some dysuria but no penile discharge. Patient exam findings are very distinctly right upper quadrant tenderness with his prior history of cholecystectomy CT abdomen pelvis was obtained. CT is negative. On recheck with pain medication patient is feeling some improvement but minimal. We reviewed his findings today including his CT findings. Plan for follow-up outpatient. Referral given as he does not have active primary care physician. Short course of pain medication. We discussed return precautions, that if he is not having anything found that EGD or colonoscopy may be appropriate next step. Discharge Plan Departure Patient Disposition: Home Clinical Impression: Abdominal pain Instructions: DI for Abdominal Pain -- Child, DI for Nonalcoholic Fatty Liver Disease Activity Restrictions/Additional Instructions: Follow-up with a physician for recheck. You can call 360 establish a new primary care physician. You can also review your insurance card there was a phone number you can call to find out who is available taking your insurance locally. Your imaging did not show any acute changes today except for some fatty liver. This should be followed over time but your liver enzymes today are normal. You may take pain medication as prescribed. Take 1-2 tablets every 6 hours as needed. This medication can make you sleepy do not drive, perform hazardous activities or make any major decisions while taking it. This medication will make you constipated please take a stool softener once to twice daily until stools are soft and regular. Prescription sent to [facility] in [place]. Please return for fevers, new or worsening abdominal pain, vomiting, black or bloody stools, lightheadedness or passing out or other new or concerning symptoms. Prescriptions: New hydrocodone-acetaminophen 5-325 mg tablet 1 tab PO Q6H PRN (Reason: pain) Qty: 10 0RF No Action ciprofloxacin HCl [Cipro] 500 mg tablet 500 mg PO BID Qty: 14 0RF metronidazole [Flagyl] 500 mg tablet 500 mg PO Q8H Qty: 21 0RF
--- NOTE | 2022-02-07 16:55 | DI.CT.S_ITS ---
PROCEDURE: CT ABDOMEN PELVIS W CON INDICATIONS: RUQ pain, hx cholecystectomy 2 years ago. TECHNIQUE: After the administration of oral and IV contrast, axial sections were acquired from the lung bases to the pubic symphysis. Coronal and sagittal reformats were performed. For radiation dose reduction, the following was used: automated exposure control, adjustment of mA and/or kV according to patient size. COMPARISON: [facility], CT, CT ABDOMEN PELVIS W CON, 04/26/2021, 23:05. [facility], CR, XR ACUTE ABDOMEN SERIES, 05/01/2021, 9:54. [facility], CT, CT ABDOMEN PELVIS W CON, 09/30/2019, 3:28. FINDINGS: Image quality: Excellent. Lung bases: Unremarkable. Heart: No significant findings. ABDOMEN: Liver: Incidental note is made of focal fatty infiltration adjacent to the falciform ligament, which is not regarded to be pathologic. The liver is normal in size and demonstrates no suspicious lesions. Gallbladder: Removed. The cholecystectomy bed is unremarkable. Biliary ducts: Unremarkable. Pancreas: Unremarkable. Spleen: Unremarkable. Adrenal Glands: Unremarkable. Kidneys and Ureters: Unremarkable. Stomach and Bowel: Stomach, small bowel loops, and colon are unremarkable. The previously seen colonic wall thickening is no longer seen. A normal appendix is seen. Peritoneum: No abnormal intraperitoneal fluid. No free air. Ventral Wall: No hernia. Abdominal Nodes: No retroperitoneal or mesenteric adenopathy by size criteria. Vessels: Aorta and inferior vena cava are normal in size. PELVIS: Pelvic Organs: Unremarkable. Bladder: Unremarkable. Pelvic Nodes: No enlarged lymph nodes. Miscellaneous: No inguinal hernias are seen. Bones: Mild dextroconvex scoliotic curvature is seen. IMPRESSION: Status post cholecystectomy, without abnormalities of the cholecystectomy bed. There is no biliary dilatation. Normal appendix. Incidental note is made of: Mild dextroconvex scoliotic curvature Dictated by: Homer Charles M.D. on 02/07/2022 at 16:44 Approved by: Homer Charles M.D. on 02/07/2022 at 16:46
[2022-02-07] MEDS: KETOROLAC 30 MG/ML VIAL IV (17:21)
[2022-02-07] MEDS: MORPHINE 4 MG/ML INJ IV (18:29)
== END 2022-02-07 18:47 | disposition home or self-care (01) ==
PROVIDERS: Emergency Provider Emergency Medicine
DX: R10.11 Right upper quadrant pain (principal)
CPT/HCPCS: 36415; 74177; 80053; 81003; 83690; 85025; 96374; 96375; 99284; J1885; J2270; Q9967

== ENCOUNTER 2022-02-10 00:33 | Emergency (ER) | payer OTHER, MEDICAID, SELFPAY ==
[2022-02-10 00:36] VITALS: BP 159/102; PULSE 73; RESP 22; TEMP 36.4; O2SAT 99; BMI 23.9
--- NOTE | 2022-02-10 01:17 | ED_ITS ---
HPI - General Adult General Chief complaint: Abdominal Pain Stated complaint: RT SIDE ABD PAIN, THROWING UP, DIZZY Time Seen by Provider: 02/10/22 00:59 Source: patient Mode of arrival: Ambulatory History of Present Illness HPI narrative: 21-year-old male. He was here in the emergency department a couple days ago for right upper quadrant abdominal pain. Several years ago he did have his gallbladder removed. He reports he has return of right upper quadrant pain. Is here a couple days ago he had a CT scan and labs which were all unremarkable. Was subsequently discharged home with pain medication and instructions help him find a primary doctor so that he can follow up with GI for further evaluation of his symptoms to include colonoscopy or endoscopy. The discomfort is in his right upper quadrant. It is reproducible with palpation. Related Data Previous Rx's Medication Instructions Recorded ciprofloxacin HCl 500 mg tablet 500 mg PO BID #14 tab 05/01/21 (Cipro) metronidazole 500 mg tablet 500 mg PO Q8H #21 tab 05/01/21 (Flagyl) hydrocodone 5 mg-acetaminophen 325 1 tab PO Q6H PRN #10 tab 02/07/22 mg tablet Allergies Allergy/AdvReac Type Severity Reaction Status Date / Time No Known Drug Allergies Allergy Verified 02/07/22 14:40 Review of Systems Constitutional Comments: No fevers Cardiovascular Comments: No chest pain Respiratory Comments: Does have some discomfort in his right upper quadrant when he takes a deep breath but no cough no shortness of breath Gastrointestinal Gastrointestinal: Reports as per HPI and Reports system reviewed and no additional complaints, except as documented Genitourinary Comments: No urinary symptoms Musculoskeletal Comments: No back pain Integumentary/Breasts Comments: No skin changes Neurologic Neurologic: Reports system reviewed and no additional complaints, except as documented Hematologic/Lymphatic On Anticoagulants: No Patient History Medical History Healthy adult Surgical History Hx laparoscopic cholecystectomy Social History Smoking Status: Never smoker Smoking Status: Never smoker alcohol intake frequency: holidays/special occasions only Substance Use Type: does not use Exam Initial Vital Signs Initial Vital Signs: Vital Signs Temperature 97.5 F L 02/10/22 00:36 Pulse Rate 73 02/10/22 00:36 Respiratory Rate 22 02/10/22 00:36 Blood Pressure 159/102 H 02/10/22 00:36 Pulse Oximetry 99 02/10/22 00:36 Const General: cooperative HENMT Head: normal to inspection and normocephalic Chest Chest: No crepitus and No tenderness Resp Effort & Inspection: normal respiratory effort Auscultation: clear to auscultation bilaterally Cardio Rate: regular rate Rhythm: regular rhythm GI Inspection: normal to inspection Palpation: soft, No firm and tender (Right upper quadrant) Back/Spine/Pelvis Back: No CVA tenderness Skin General: no rashes or lesions noted Neuro General: patient alert, patient awake and moves all extremities Extrem General: normal to inspection and capillary refill normal Psych Appearance: grossly normal and well kempt Course Orders Ordered: ED Orders 02/10/22 01:18 CT angio abdomen pelvis Stat 02/10/22 01:25 Complete Blood Count AUTO DIFF Stat Comprehensive Metabolic Panel Stat Lactate (Lactic Acid) Stat Lipase Stat Discontinued Medications Hydrocodone Bitart/Acetaminophen (Hydrocodone/Acet 5/325 Tablet) 1 tab PO NOW ONE Stop: 02/10/22 02:47 Last Admin: 02/10/22 02:54 Dose: 1 tab Documented by: KRISTINA Sodium Chloride (Normal Saline 0.9%) 1,000 mls @ 1,000 mls/hr IV BOLUS ONE Stop: 02/10/22 02:17 Last Infusion: 02/10/22 02:38 Dose: 0 mls/hr Documented by: Admin: 02/10/22 01:32 Dose: 1,000 mls/hr Documented by: KRISTINA Ketorolac Tromethamine (Ketorolac 30 Mg/Ml Vial) 30 mg IV NOW ONE Stop: 02/10/22 01:19 Last Admin: 02/10/22 01:33 Dose: 30 mg Documented by: KRISTINA Morphine Sulfate (Morphine 4 Mg/Ml Inj) 4 mg IV NOW ONE Stop: 02/10/22 01:19 Last Admin: 02/10/22 01:33 Dose: 4 mg Documented by: KRISTINA Vital Signs Vital signs: Vital Signs - 8 hr 02/10/22 00:36 02/10/22 02:59 Temperature 97.5 F L Pulse Rate 73 78 Respiratory Rate 22 16 Blood Pressure 159/102 H 148/88 H Pulse Oximetry 99 100 Medical Decision Making Medical Records Medical records reviewed: Yes I reviewed the patient's medical records. Lab Data Lab results reviewed: Yes I reviewed the patient's lab results. Result diagrams: 02/10/22 01:25 02/10/22 01:25 Labs: Lab Results 02/10/22 02/10/22 02/10/22 Range/Units 01:25 01:25 01:25 WBC 10.9 (4.5-11.0) X10^3/uL RBC 5.03 (4.5-5.9) X10^6/uL Hgb 14.2 (13.5-17.5) g/dL Hct 42.4 (41-53) % MCV 84.3 (80-100) fL MCH 28.2 (26-34) PG MCHC 33.4 (30-36) % RDW 13.6 (11.6-14.8) % Plt Count 250 (150-400) X10^3/uL Neut % (Auto) Not Reportable Lymph % (Auto) Not Reportable [place] % (Auto) Not Reportable Eos % (Auto) Not Reportable Baso % (Auto) Not Reportable Lymph # (Auto) Not Reportable [place] # (Auto) Not Reportable Baso # (Auto) Not Reportable Total Counted 100 Seg Neutrophils % 77.0 H (38-70) % Band Neutrophils % 6.0 (3-7) % Lymphocytes % (Manual) 13.0 L (25-45) % Monocytes % (Manual) 4.0 (2-11) % Neutrophils # (Manual) 9047 H (3338-9199) /uL RBC Morphology Normal morphology Sodium 135 L (137-145) mmol/L Potassium 4.0 (3.4-5.1) mmol/L Chloride 102 (98-107) mmol/L Carbon Dioxide 26 (22-32) mmol/L BUN 13 (9-20) mg/dL Creatinine 0.82 (0.66-1.25) mg/dL Estimated GFR > 60 (>60) mL/min BUN/Creatinine Ratio 15.9 (6-22) Glucose 122 H (70-100) mg/dL Lactate 0.9 (0.7-2.1) mmol/L Calcium 8.6 (8.4-10.2) mg/dL Total Bilirubin 0.5 (0.2-1.3) mg/dL AST 39 (17-59) IU/L ALT 32 (<50) IU/L Alkaline Phosphatase 88 (38-126) U/L Total Protein 7.2 (6.3-8.2) g/dL Albumin 4.3 (3.5-5.0) g/dL Globulin 2.9 (1.7-4.1) g/dL Albumin/Globulin Ratio 1.5 (1.0-2.8) Lipase 49 (23-300) U/L MDM Narrative Medical decision making narrative: Patient has isolated right upper quadrant abdominal tenderness. I did review the visit from a couple days ago. Had a unremarkable workup. He has significant pain in his right upper quadrant that of consider pain out of proportion. His labs today are unremarkable. No leukocytosis. Normal LFTs. Normal lipase. He denies any urinary symptoms any is no right CVA tenderness. Given his presentation I do feel that a repeat CT scan is warranted. At this time will obtain a CTA to evaluate for potential vascular pathology. His lactate was unremarkable. Subsequent CTA again is unremarkable. He has no skin changes over the area that make me concern for zoster. Given the right upper quadrant I did consider right lower lung field pathology however he reports no cough. No shortness of breath. And the lung prado over seen on the CT scan are unremarkable. I did consider potential retained stone given his history of cholecystectomy however there is no dilation of the bile ducts and he has normal LFTs and normal bilirubin. Low suspicion for pyelonephritis. I do feel that the next step in the patient's workup is a colonoscopy or endoscopy. I will give the patient information to contact General surgery here in the area to discuss these procedures. He was given return precautions. He expressed un derstanding and agreement. Discharge Plan Departure Patient Disposition: Home Clinical Impression: Abdominal pain Instructions: DI for Abdominal Pain-Adult Activity Restrictions/Additional Instructions: The workup here in the emergency department that has happened over the past several days is very reassuring. Unfortunately it does not give us a specific reason for the discomfort that you are having however there does not appear to be any acute surgical issue nor infectious issue. The next step in the workup of your discomfort would be to see someone to discuss the indications for a col onoscopy. You can contact the general surgery department at the number provided below to help set this up. Return to the emergency department for any new symptoms. Prescriptions: No Action ciprofloxacin HCl [Cipro] 500 mg tablet 500 mg PO BID Qty: 14 0RF metronidazole [Flagyl] 500 mg tablet 500 mg PO Q8H Qty: 21 0RF hydrocodone-acetaminophen 5-325 mg tablet 1 tab PO Q6H PRN (Reason: pain) Qty: 10 0RF Referrals: Edilia Cheatham PA-C [Primary Care Provider] - Jorge Alberto Dorantes MD [Physician] -
--- NOTE | 2022-02-10 01:18 | DI.CT.S_ITS ---
PROCEDURE: CT ANGIO ABDOMEN PELVIS INDICATIONS: R sided pain out of proportion to exam TECHNIQUE: After the administration of intravenous contrast, 2.5 mm sections acquired from the diaphragm to the iliac crests. 10 mm maximum intensity projection (MIP) coronal and sagittal reformats were then performed. For radiation dose reduction, the following was used: automated exposure control. COMPARISON: [facility], CT, CT ABDOMEN PELVIS W CON, 04/26/2021, 23:05. [facility], CT, CT ABDOMEN PELVIS W CON, 02/07/2022, 17:03. FINDINGS: Image quality: Good. Extravascular tissues: Lung bases are clear. Heart size is normal. Liver is normal in size and enhancement. Gallbladder is absent. Biliary system is non dilated. Pancreas enhances normally. Spleen is normal in size and enhancement. No adrenal nodules. Kidneys are normal in size and enhancement, without hydronephrosis. Non-opacified bowel loops demonstrate normal wall thickness and caliber. Normal appendix. No free fluid or air. No retroperitoneal or mesenteric adenopathy. No ventral hernias. No suspicious bony abnormalities. Scoliosis. Dysplasia the coccyx. No vertebral body compression fractures. Abdominal aorta: No aortic dissection. No aneurysm. Mesenteric arteries: Celiac, SMA, KIAH are patent. Mild motion artifact. Renal arteries: Patent. IMPRESSION: 1. Mesenteric arteries are patent. No aortic dissection. 2. No acute abnormality identified. No free fluid. Dictated by: Cameron Vaz M.D. on 02/10/2022 at 1:54 Approved by: Cameron Vaz M.D. on 02/10/2022 at 2:02
[2022-02-10] MEDS: SODIUM CHLORIDE 0.9% 1,000 ML 1000 ML IV (01:32)
[2022-02-10] MEDS: MORPHINE 4 MG/ML INJ IV (01:33)
[2022-02-10] MEDS: KETOROLAC 30 MG/ML VIAL IV (01:33)
[2022-02-10 01:44] LABS: Hematocrit 42.4 % (41-53); Hemoglobin 14.2 g/dL (13.5-17.5); Mean Corpuscular HGB Conc 33.4 % (30-36); Mean Corpuscular Hemoglobin 28.2 PG (26-34); Mean Corpuscular Volume 84.3 fL (80-100); Platelet Count 250 X10^3/uL (150-400); Red Blood Cell Count 5.03 X10^6/uL (4.5-5.9); Red Cell Distribution Width 13.6 % (11.6-14.8); White Blood Cell Count 10.9 X10^3/uL (4.5-11.0)
[2022-02-10 01:45] LABS: Add Manual Diff / Slide Review YES
[2022-02-10 01:46] LABS: Lactate (Lactic Acid) 0.9 mmol/L (0.7-2.1)
[2022-02-10 01:47] LABS: Alanine Aminotransferase 32 IU/L (<50); Albumin 4.3 g/dL (3.5-5.0); Albumin Globulin Ratio 1.5 (1.0-2.8); Alkaline Phosphatase 88 U/L (38-126); Aspartate Aminotransferase 39 IU/L (17-59); BUN Creatinine Ratio 15.9 (6-22); Bilirubin Total 0.5 mg/dL (0.2-1.3); Blood Urea Nitrogen 13 mg/dL (9-20); Calcium 8.6 mg/dL (8.4-10.2); Carbon Dioxide 26 mmol/L (22-32); Chloride 102 mmol/L (98-107); Estimated Glomerular Filt Rate > 60 mL/min (>60); Globulin 2.9 g/dL (1.7-4.1); Glucose 122 mg/dL (70-100); HEMOLYSIS < 15 (0-50); Lipase 49 U/L (23-300); Sodium 135 mmol/L (137-145); Total Protein 7.2 g/dL (6.3-8.2)
[2022-02-10] MEDS: HYDROCODONE/ACET 5/325 TABLET 1 TAB PO (02:54)
[2022-02-10 02:57] LABS: Neutrophils Absolute Manual 9047 /uL (3000-5900); RBC Morphology Normal Morphology; Total Cells Counted 100
[2022-02-10 02:59] VITALS: BP 148/88; PULSE 78; RESP 16; O2SAT 100
== END 2022-02-10 03:00 | disposition home or self-care (01) ==
PROVIDERS: Emergency Provider Emergency Medicine; PCP Physician Assistant Medical
DX: R10.11 Right upper quadrant pain (principal)
CPT/HCPCS: 36415; 74174; 80053; 83605; 83690; 85007; 85025; 96361; 96374; 96375; 99284; J1885; J2270